=== PATIENT | male | born 1990 | race Caucasian/White ===

== ENCOUNTER 2020-09-02 14:15 | Outpatient (REF) | payer OTHER, SELFPAY | END 2020-09-02 14:16 | disposition home or self-care (01) | LOC: HO.LAB 14:15 | PROVIDERS: Visit Provider Internal Medicine | DX: Z20.828 Contact with and (suspected) exposure to other viral communicable diseases (principal) | CPT/HCPCS: 87635 ==

== ENCOUNTER 2020-09-20 16:34 | Outpatient (REF) | payer OTHER, SELFPAY | END 2020-09-20 16:35 | disposition home or self-care (01) | LOC: HO.LAB 16:34 | PROVIDERS: Visit Provider Internal Medicine | DX: Z20.828 Contact with and (suspected) exposure to other viral communicable diseases (principal) | CPT/HCPCS: U0003 ==

== ENCOUNTER → 2023-02-09 10:43 | Outpatient (BNVA) | payer OTHER, SELFPAY | PROVIDERS: Visit Provider Internal Medicine | DX: K40.90 Unilateral inguinal hernia, without obstruction or gangrene, not specified as recurrent (principal) | CPT/HCPCS: 99203 ==

== ENCOUNTER → 2023-02-20 09:24 | Outpatient (BNVA) | payer OTHER, SELFPAY | PROVIDERS: PCP Nurse Practitioner Family; Referring Provider Internal Medicine; Visit Provider Surgery | DX: K40.90 Unilateral inguinal hernia, without obstruction or gangrene, not specified as recurrent (principal) | CPT/HCPCS: 99202 ==

== ENCOUNTER 2023-03-30 06:36 | Day surgery (SDC) | payer OTHER, SELFPAY ==
--- NOTE | 2023-03-29 08:48 | P.CONAN_ITS ---
Documented by User: Lily Casey NP 03/29/23 08:49 HPI - Anesthesia Eval Consult details Narrative: 32yo M for Right Hernia Repair Inguinal Open w/ Mesh COUNTS INCLUDE 234 BEDS AT THE [facility] Active Problems Active Problems: All Active Problems (Updated 02/20/23 @ 09:54 by Sp Villa MD) Inguinal hernia of right side without obstruction or gangrene (Acute) Past Medical History Medical History History of eye muscle disorder Surgical History Surgical History H/O adenoidectomy Hx of tonsillectomy [place] teeth extracted Social History Social History (Updated 02/20/23 @ 09:40 by CHE Kay) Household Members Other:: parents Housing: House Alcohol intake: never Patient Tobacco Use Status: Never used Tobacco Are you DNR?: No Advance Directives: No Advance Directives Information Provided: Yes Nutrition Risks: No Nutritional Risk Meds Allergies Allergy/AdvReac Type Severity Reaction Status Date / Time No Known Allergies Allergy Verified 03/30/23 07:09 Home Medications Medication Instructions Recorded Confirmed Last Taken Type multivitamin with minerals 1 tab PO DAILY 02/20/23 03/30/23 Unknown History Exam Exam Date and Time: March 29, 2023 0848 Assessment and Plan Assessment Anesthesia Assessment: Chart Reviewed Documented by User: Irma Sears MD 03/30/23 08:07 COUNTS INCLUDE 234 BEDS AT THE [facility] Past Medical History Medical History History of eye muscle disorder Surgical History Surgical History H/O adenoidectomy Hx of tonsillectomy [place] teeth extracted History of Problems with Anesthesia: No Social History Social History (Updated 02/20/23 @ 09:40 by CHE Kay) Household Members Other:: parents Housing: House Alcohol intake: never Patient Tobacco Use Status: Never used Tobacco Are you DNR?: No Advance Directives: No Advance Directives Information Provided: Yes Nutrition Risks: No Nutritional Risk Meds Allergies Allergy/AdvReac Type Severity Reaction Status Date / Time No Known Allergies Allergy Verified 03/30/23 07:09 Home Medications Medication Instructions Recorded Confirmed Last Taken Type multivitamin with minerals 1 tab PO DAILY 02/20/23 03/30/23 Unknown History Exam Airway Mallampati Class: II TM Dist: >3cm Neck ROM: Full Loose/Missing/Broken Teeth: No Heart: RRR Lungs: CTA Assessment and Plan Assessment Anesthesia Assessment: Anesthesia Plan Discussed Final Anesthetic Review History of Problems with Anesthesia: No NPO: Yes ASA Class: I Final Preanesthetic Review: Meds/Allgs Chart Reviewed, Consent Obtained/Reviewed and Anes Risks/Benef Reviewed Patient Risk: Low Procedure Risk: Low Anesthetic Plan Anesthetic Plan: GA Disposition: Standard PACU
--- NOTE | 2023-03-29 14:23 | MHC.SHP ---
Pre-Procedural Eval Section A Date of Service: 03/29/23 The patient is an INPATIENT: No Changes since office visit: No Cold of Flu in the past 2 weeks, No New Medical Problems, No Changes in Medication and No Patient answered all questions The History & Physical has been completed within 30 days and I have reviewed it.: Yes Section B Chief Complaint: Unilateral inguinal hernia, without obstruction Allergies: Allergies Allergy/AdvReac Type Severity Reaction Status Date / Time No Known Allergies Allergy Verified 02/20/23 09:36 Plan I have reviewed the history and physical and performed a pertinent physical examination on my patient. No changes have occurred unless specified. Time Spent With Patient Time: Total time managing care of this patient today ____ minutes.
[2023-03-30] VITALS (7 sets, daily range): BP systolic 117–144; BP diastolic 53–92; PULSE 84–99; RESP 15–18; TEMP 36.5–36.7; O2SAT 97–99; BMI 30.5
[2023-03-30] MEDS: Lactated Ringers 1,000 ML 100 ML IVCONT (06:56)
--- NOTE | 2023-03-30 09:55 | W.PM.OPN ---
Operative Note Operative Note Date of Service: 03/30/23 Narrative: Preoperative diagnosis: [] Right inguinal hernia Postop diagnosis: [] Same Procedure [] repair right inguinal hernia open technique with Bard mesh Surgeon: [] Allen Stress Test Technician: [] Anisha BELTRAN Type of Anesthesia: [] General Indication for surgery: [] Direct right inguinal hernia. No indirect hernia demonstrated. Findings: [] Patient brought to the operating room, placed on operating table in supine position, after adequate level of general anesthesia was induced, the right groin and genitalia were prepped and draped in usual sterile fashion. Using a small right jada inguinal incision, this carried down through skin, subcutaneous tissue, Bret's fascia. External oblique fibers were opened there direction with care to preserve both the ilioinguinal and iliohypogastric nerves throughout the procedure. The spermatic cord was identified and retracted from the field. Exploration of the cord demonstrated no indirect hernia. Patient had a moderate size direct inguinal hernia which was reduced. A Bard plug was placed in this direct defect, and sutured inferiorly to the inguinal ligament, and superiorly to the transversalis fascia using interrupted 2-0 Ethibond suture. A completion the procedure, mesh was in good position with no tension. Wound was irrigated, secured hemostasis, and closed in the following manner; external oblique fascia was reapproximated using running 2-0 Vicryl suture. Bret fascia was closed using up to 3-0 Vicryl sutures. Interrupted inverted subdermal 3-0 Vicryl sutures followed by running subcuticular 4-0 Vicryl sutures were placed. Steri-Strips and dressings were applied. Was infiltrated 0.5% Marcaine at completion. The ipsilateral testicle was intrascrotal at completion of the procedure. Sponge, needle, and instrument counts were reported to be correct. Patient tolerated the procedure well and emerged anesthesia stable condition. EBL minimal
[2023-03-30] MEDS: ondansetron HCL 4 MG/2 ML VIAL IVPUSH (10:40)
[2023-03-30] MEDS: Ondansetron ODT 4 MG TAB.RAPDIS TRANSLINGU (11:01)
== END 2023-03-30 13:53 | disposition home or self-care (01) ==
PROVIDERS: PCP Nurse Practitioner Family; Visit Provider Surgery
PROC: (CPT 49505; principal; 2023-03-30 08:10)
DX: K40.90 Unilateral inguinal hernia, without obstruction or gangrene, not specified as recurrent (principal)
CPT/HCPCS: 49505; C1781; J0690; J1100; J1170; J2250; J2370; J2405; J2795; J3010

== ENCOUNTER 2023-04-04 19:34 | Emergency (ER) | payer OTHER, SELFPAY ==
[2023-04-04 19:42] VITALS: BP 124/64; PULSE 95; RESP 18; TEMP 36.8; O2SAT 98; BMI 30.1
--- NOTE | 2023-04-04 19:43 | ED_ITS ---
HPI - Nausea/Vomiting/Diarrhea General Chief complaint: GI Bleed <DEVIN Kc - Last Filed: 04/04/23 19:47> Stated complaint: black stool/ had surgery sunday <DEVIN Kc - Last Filed: 04/04/23 19:47> Time Seen by Provider: 04/04/23 21:28 <DEVIN Kc - Last Filed: 04/04/23 19:47> Source: patient <Amber Mora MD - Last Filed: 04/04/23 21:51> Mode of arrival: ambulatory <Amber Mora MD - Last Filed: 04/04/23 21:51> Limitations: no limitations <Amber Mora MD - Last Filed: 04/04/23 21:51> History of Present Illness HPI Narrative: Patient comes to the emergency room complaining of 3 days of [place]/blackish stool. Patient has not seen any red blood per rectum. Five days ago, patient had a right inguinal hernia surgery. Patient states that he is healing well. However, patient started noticing the black tarry stools after the procedure. Patient denies abdominal pain, no nausea vomiting or diarrhea. Patient denies taking by Pepto-Bismol, NSAIDs or iron <Amber Mora MD - Last Filed: 04/04/23 21:51> Related Data Home medications: Home Medications Medication Instructions Recorded Confirmed multivitamin with minerals 1 tab PO DAILY 02/20/23 03/30/23 Previous Rx's Medication Instructions Recorded hydrocodone 5 mg-acetaminophen 325 1 tab PO Q4-6H #30 tabs 03/30/23 mg tablet <DEVIN Kc - Last Filed: 04/04/23 19:47> Allergies/Adverse reactions: Allergies Allergy/AdvReac Type Severity Reaction Status Date / Time No Known Allergies Allergy Verified 03/30/23 07:09 <DEVIN Kc - Last Filed: 04/04/23 19:47> Review of Systems Review of Systems: Constitutional : No Weight loss, No Fever, No Chills, No Night Sweats, No Fatigue, No Malaise ENT/Mouth : No Hearing loss, No Ear Pain, No Nasal Congestion, No Sinus Pain, No Hoarseness, No sore throat, No Rhinorrhea, No Swallowing Difficulty Eyes: No Eye Pain, No Swelling, No Redness, No Foreign Body, No Discharge, No Vision Changes Cardiovascular : No Chest Pain, No SOB, No Dyspnea on Exertion, No Orthopnea, No Edema, No Palpitations Respiratory : No Cough, No Sputum, No Wheezing, No Smoke Exposure, No Dyspnea Gastrointestinal : No Nausea, No Vomiting, No Diarrhea, No Constipation, No abdominal Pain, complaining of black tarry stool Genitourinary : no irregular bleeding, No Dysuria, No Urinary Frequency, No Hematuria, No Urinary Incontinence, No Urgency, No Flank Pain, No Urinary Flow Changes, No Hesitancy Musculoskeletal : No joint pain, No Myalgias, No Joint Swelling Skin : No Skin Lesions, No rash Neuro : No Weakness, No Numbness, No Paresthesias, No Loss of Consciousness, No Dizziness, No Headache Psych : No Anxiety/Panic, No Depression, No SI/HI/AH/VH, No Social Issues, Heme/Lymph: No Bruising, No Bleeding,No Lymphadenopathy Endocrine : No Polyuria, No Polydipsia, No Temperature Intolerance <Amber Mora MD - Last Filed: 04/04/23 21:51> [facility] Past Medical History Medical History: Medical History History of eye muscle disorder <DEVIN Kc - Last Filed: 04/04/23 19:47> Surgical History: Surgical History H/O adenoidectomy Hx of tonsillectomy [place] teeth extracted <DEVIN Kc - Last Filed: 04/04/23 19:47> Social History Social History: Social History (Updated 02/20/23 @ 09:40 by CHE Kay) Household Members Other:: parents Housing: House Alcohol intake: never Patient Tobacco Use Status: Never used Tobacco Advance Directives: No Advance Directives Information Provided: Yes <DEVIN Kc - Last Filed: 04/04/23 19:47> Physical Exam Vital Signs: Vital Signs: Last Vital Signs Temp 98.7 F 04/04/23 21:13 Pulse 89 04/04/23 21:13 Resp 16 04/04/23 21:13 BP 119/72 04/04/23 21:13 Pulse Ox 98 04/04/23 21:13 O2 Del Method Room Air 04/04/23 21:13 BMI result Body Mass Index 30.1 <DEVIN Kc - Last Filed: 04/04/23 19:47> Vital Signs: Last Vital Signs Temp 98.7 F 04/04/23 21:13 Pulse 89 04/04/23 21:13 Resp 16 04/04/23 21:13 BP 119/72 04/04/23 21:13 Pulse Ox 98 04/04/23 21:13 O2 Del Method Room Air 04/04/23 21:13 BMI result Body Mass Index 30.1 <Amber Mora MD - Last Filed: 04/04/23 21:51> Const: Other: Appearance: Alert. Oriented X3. No acute distress. Eyes: Pupils equal, round and reactive to light. ENT: Pharynx normal. Neck: Normal inspection. Neck supple. No lymph nodes noted. No crepitus CVS: Normal heart rate and rhythm. Pulses normal. Normal S1 and S2 Respiratory: No respiratory distress. Breath sounds normal. No Wheezing. No rales Abdomen: Soft and nontender. No rigidity. No distention. Digital rectal exam: Black/brownish stool Skin: Skin warm and dry. Normal skin color. Normal skin turgor. Extremities: No lower extremity edema. No Lacerations. No Rash Neuro: Oriented X 3. No motor deficit. No sensory deficit. Moving all extremities. No slurred speech. CN 2 through 12 grossly intact Psych: calm, cooperative, normal affect <Amber Mora MD - Last Filed: 04/04/23 21:51> Course Course Course Narrative: RME - 32 yo male POD #5 from right inguinal hernia repair by Dr. Villa who presents to the ER for evaluation of black stools x3 that started yesterday. He states his post-op pain has been manageable. He has been nauseated and having some indigestion that started yesterday as well. Has not been on NSAIDS. He was unable to get ahold of anyone in Surgery office today. Plan: lab workup, LYLE <DEVIN Kc - Last Filed: 04/04/23 19:47> Medical Decision Making Medical Decision Making MDM Narrative: -hematology and chemistry within normal limits -guaiac stool test: Negative -patient likely has dark stools secondary to something he ate or a medication that he was giving during his surgery. Patient ready for discharge. Patient asymptomatic <Amber Mora MD - Last Filed: 04/04/23 21:51> Lab Data Result Diagrams: 04/04/23 19:58 04/04/23 19:57 <DEVIN Kc - Last Filed: 04/04/23 19:47> Labs: Lab Results 04/04/23 04/04/23 04/04/23 Range/Units 19:57 19:58 19:58 WBC 9.6 (4.8-10.8) X10*3/uL RBC 4.91 (4.60-5.80) X10*6/uL Hgb 14.8 (14.0-18.0) g/dl Hct 43.0 (42.0-52.0) % MCV 87.6 (80.0-98.0) fL MCH 30.1 (27.0-33.0) pg MCHC 34.4 (31.0-36.0) g/dl RDW 12.5 (11.0-16.0) % Plt Count 332 (160-400) X10*3/uL MPV 9.1 L (9.4-12.4) fL Immature Gran % (Auto) 0.4 (0.0-0.4) % Neut % (Auto) 60.1 (45-73) % Lymph % (Auto) 30.6 (20-40) % [place] % (Auto) 7.9 (2-11) % Eos % (Auto) 0.6 (0-4) % Baso % (Auto) 0.4 (0-2) % Lymph # (Auto) 2.9 (1.2-4.9) X10*3/uL [place] # (Auto) 0.8 (0.1-1.2) X10*3/uL Eos # (Auto) 0.1 (0.0-0.4) X10*3/uL Baso # (Auto) 0.0 (0.0-0.2) X10*3/uL Abs Immat Gran (auto) 0.04 H (0.00-0.03) X10*3/uL Absolute Neuts (auto) 5.8 (2.0-8.3) x10*3/uL Absolute Nucleated RBC 0.000 (0.0-0.012) X10*3/uL Nucleated RBC % (auto) 0.0 (0.0-0.2) /100WBC PT 11.1 (10.0-13.1) SEC INR 1.0 (0.9-1.1) APTT 30.8 (26.0-36.4) SEC Sodium 141 (135-145) mmol/L Potassium 4.4 (3.3-5.1) mmol/L Chloride 105 (96-108) mmol/L Carbon Dioxide 29 (22-29) mmol/L Anion Gap 11 L (12-20) BUN 13 (9-16) mg/dL Creatinine 0.87 (0.5-1.4) mg/dL Estim Creat Clear Calc 129.7 Estimated GFR > 60 Random Glucose 94 (60-115) mg/dL Calcium 9.8 (8.4-10.2) mg/dL Magnesium 2.0 (1.6-2.6) mg/dL Total Bilirubin 0.5 (0.0-1.0) mg/dL Direct Bilirubin 0.1 (0.0-0.5) mg/dL AST 22 (5-37) U/L ALT 49 H (0-40) U/L Alkaline Phosphatase 71 (39-117) U/L Total Protein 7.1 (6.5-8.0) g/dL Albumin 4.7 (3.5-5.0) g/dL Urine Color Urine Appearance Urine pH (5.0-9.0) Ur Specific [place] (1.005-1.025) Urine Protein (Neg-Trace) mg/dL Urine Glucose (UA) (Negative) mg/dL Urine Ketones (Negative) mg/dL Urine Blood (Negative) Urine Nitrite (Negative) Ur Leukocyte Esterase (Negative) Stool Occult Blood (NEGATIVE) 04/04/23 04/04/23 Range/Units 20:02 21:37 WBC (4.8-10.8) X10*3/uL RBC (4.60-5.80) X10*6/uL Hgb (14.0-18.0) g/dl Hct (42.0-52.0) % MCV (80.0-98.0) fL MCH (27.0-33.0) pg MCHC (31.0-36.0) g/dl RDW (11.0-16.0) % Plt Count (160-400) X10*3/uL MPV (9.4-12.4) fL Immature Gran % (Auto) (0.0-0.4) % Neut % (Auto) (45-73) % Lymph % (Auto) (20-40) % [place] % (Auto) (2-11) % Eos % (Auto) (0-4) % Baso % (Auto) (0-2) % Lymph # (Auto) (1.2-4.9) X10*3/uL [place] # (Auto) (0.1-1.2) X10*3/uL Eos # (Auto) (0.0-0.4) X10*3/uL Baso # (Auto) (0.0-0.2) X10*3/uL Abs Immat Gran (auto) (0.00-0.03) X10*3/uL Absolute Neuts (auto) (2.0-8.3) x10*3/uL Absolute Nucleated RBC (0.0-0.012) X10*3/uL Nucleated RBC % (auto) (0.0-0.2) /100WBC PT (10.0-13.1) SEC INR (0.9-1.1) APTT (26.0-36.4) SEC Sodium (135-145) mmol/L Potassium (3.3-5.1) mmol/L Chloride (96-108) mmol/L Carbon Dioxide (22-29) mmol/L Anion Gap (12-20) BUN (9-16) mg/dL Creatinine (0.5-1.4) mg/dL Estim Creat Clear Calc Estimated GFR Random Glucose (60-115) mg/dL Calcium (8.4-10.2) mg/dL Magnesium (1.6-2.6) mg/dL Total Bilirubin (0.0-1.0) mg/dL Direct Bilirubin (0.0-0.5) mg/dL AST (5-37) U/L ALT (0-40) U/L Alkaline Phosphatase (39-117) U/L Total Protein (6.5-8.0) g/dL Albumin (3.5-5.0) g/dL Urine Color Yellow Urine Appearance Clear Urine pH 7.5 (5.0-9.0) Ur Specific [place] 1.010 (1.005-1.025) Urine Protein Negative (Neg-Trace) mg/dL Urine Glucose (UA) Negative (Negative) mg/dL Urine Ketones Negative (Negative) mg/dL Urine Blood Negative (Negative) Urine Nitrite Negative (Negative) Ur Leukocyte Esterase Negative (Negative) Stool Occult Blood NEGATIVE (NEGATIVE) <DEVIN Kc - Last Filed: 04/04/23 19:47> Lab Results 04/04/23 04/04/23 04/04/23 Range/Units 19:57 19:58 19:58 WBC 9.6 (4.8-10.8) X10*3/uL RBC 4.91 (4.60-5.80) X10*6/uL Hgb 14.8 (14.0-18.0) g/dl Hct 43.0 (42.0-52.0) % MCV 87.6 (80.0-98.0) fL MCH 30.1 (27.0-33.0) pg MCHC 34.4 (31.0-36.0) g/dl RDW 12.5 (11.0-16.0) % Plt Count 332 (160-400) X10*3/uL MPV 9.1 L (9.4-12.4) fL Immature Gran % (Auto) 0.4 (0.0-0.4) % Neut % (Auto) 60.1 (45-73) % Lymph % (Auto) 30.6 (20-40) % [place] % (Auto) 7.9 (2-11) % Eos % (Auto) 0.6 (0-4) % Baso % (Auto) 0.4 (0-2) % Lymph # (Auto) 2.9 (1.2-4.9) X10*3/uL [place] # (Auto) 0.8 (0.1-1.2) X10*3/uL Eos # (Auto) 0.1 (0.0-0.4) X10*3/uL Baso # (Auto) 0.0 (0.0-0.2) X10*3/uL Abs Immat Gran (auto) 0.04 H (0.00-0.03) X10*3/uL Absolute Neuts (auto) 5.8 (2.0-8.3) x10*3/uL Absolute Nucleated RBC 0.000 (0.0-0.012) X10*3/uL Nucleated RBC % (auto) 0.0 (0.0-0.2) /100WBC PT 11.1 (10.0-13.1) SEC INR 1.0 (0.9-1.1) APTT 30.8 (26.0-36.4) SEC Sodium 141 (135-145) mmol/L Potassium 4.4 (3.3-5.1) mmol/L Chloride 105 (96-108) mmol/L Carbon Dioxide 29 (22-29) mmol/L Anion Gap 11 L (12-20) BUN 13 (9-16) mg/dL Creatinine 0.87 (0.5-1.4) mg/dL Estim Creat Clear Calc 129.7 Estimated GFR > 60 Random Glucose 94 (60-115) mg/dL Calcium 9.8 (8.4-10.2) mg/dL Magnesium 2.0 (1.6-2.6) mg/dL Total Bilirubin 0.5 (0.0-1.0) mg/dL Direct Bilirubin 0.1 (0.0-0.5) mg/dL AST 22 (5-37) U/L ALT 49 H (0-40) U/L Alkaline Phosphatase 71 (39-117) U/L Total Protein 7.1 (6.5-8.0) g/dL Albumin 4.7 (3.5-5.0) g/dL Urine Color Urine Appearance Urine pH (5.0-9.0) Ur Specific [place] (1.005-1.025) Urine Protein (Neg-Trace) mg/dL Urine Glucose (UA) (Negative) mg/dL Urine Ketones (Negative) mg/dL Urine Blood (Negative) Urine Nitrite (Negative) Ur Leukocyte Esterase (Negative) Stool Occult Blood (NEGATIVE) 04/04/23 04/04/23 Range/Units 20:02 21:37 WBC (4.8-10.8) X10*3/uL RBC (4.60-5.80) X10*6/uL Hgb (14.0-18.0) g/dl Hct (42.0-52.0) % MCV (80.0-98.0) fL MCH (27.0-33.0) pg MCHC (31.0-36.0) g/dl RDW (11.0-16.0) % Plt Count (160-400) X10*3/uL MPV (9.4-12.4) fL Immature Gran % (Auto) (0.0-0.4) % Neut % (Auto) (45-73) % Lymph % (Auto) (20-40) % [place] % (Auto) (2-11) % Eos % (Auto) (0-4) % Baso % (Auto) (0-2) % Lymph # (Auto) (1.2-4.9) X10*3/uL [place] # (Auto) (0.1-1.2) X10*3/uL Eos # (Auto) (0.0-0.4) X10*3/uL Baso # (Auto) (0.0-0.2) X10*3/uL Abs Immat Gran (auto) (0.00-0.03) X10*3/uL Absolute Neuts (auto) (2.0-8.3) x10*3/uL Absolute Nucleated RBC (0.0-0.012) X10*3/uL Nucleated RBC % (auto) (0.0-0.2) /100WBC PT (10.0-13.1) SEC INR (0.9-1.1) APTT (26.0-36.4) SEC Sodium (135-145) mmol/L Potassium (3.3-5.1) mmol/L Chloride (96-108) mmol/L Carbon Dioxide (22-29) mmol/L Anion Gap (12-20) BUN (9-16) mg/dL Creatinine (0.5-1.4) mg/dL Estim Creat Clear Calc Estimated GFR Random Glucose (60-115) mg/dL Calcium (8.4-10.2) mg/dL Magnesium (1.6-2.6) mg/dL Total Bilirubin (0.0-1.0) mg/dL Direct Bilirubin (0.0-0.5) mg/dL AST (5-37) U/L ALT (0-40) U/L Alkaline Phosphatase (39-117) U/L Total Protein (6.5-8.0) g/dL Albumin (3.5-5.0) g/dL Urine Color Yellow Urine Appearance Clear Urine pH 7.5 (5.0-9.0) Ur Specific [place] 1.010 (1.005-1.025) Urine Protein Negative (Neg-Trace) mg/dL Urine Glucose (UA) Negative (Negative) mg/dL Urine Ketones Negative (Negative) mg/dL Urine Blood Negative (Negative) Urine Nitrite Negative (Negative) Ur Leukocyte Esterase Negative (Negative) Stool Occult Blood NEGATIVE (NEGATIVE) <Amber Mora MD - Last Filed: 04/04/23 21:51> Discharge Plan Discharge Clinical Impression: Dark stools <DEVIN Kc - Last Filed: 04/04/23 19:47> Patient Disposition: Home, Self-Care <DEVIN Kc - Last Filed: 04/04/23 19:47> Instructions: Rectal Bleeding (ED) <DEVIN Kc - Last Filed: 04/04/23 19:47> Additional Instructions: Please follow-up with your primary care physician tomorrow. If you have any worsening or new symptoms, please return to the emergency room or call 911 <DEVIN Kc - Last Filed: 04/04/23 19:47> Prescriptions: No Action hydrocodone-acetaminophen 5-325 mg tablet 1 tab PO Q4-6H Qty: 30 0RF Rx Instructions: Partial Fill upon patient request. multivitamin with minerals Tablet 1 tab PO DAILY <DEVIN Kc - Last Filed: 04/04/23 19:47>
[2023-04-04 20:05] LABS: MANUAL DIFF FLAG NO
[2023-04-04 20:07] LABS: Basophils Percent Auto 0.4 % (0-2); Eosinophils Absolute Auto 0.1 X10*3/uL (0.0-0.4); Eosinophils Percent Auto 0.6 % (0-4); Hemoglobin 14.8 g/dl (14.0-18.0); Imm Gran Abs Auto 0.04 X10*3/uL (0.00-0.03); Imm Gran Pct Auto 0.4 % (0.0-0.4); Lymphocytes Absolute Auto 2.9 X10*3/uL (1.2-4.9); Lymphocytes Percent Auto 30.6 % (20-40); Mean Corpuscular HGB Conc 34.4 g/dl (31.0-36.0); Mean Corpuscular Hemoglobin 30.1 pg (27.0-33.0); Mean Corpuscular Volume 87.6 fL (80.0-98.0); Mean Platelet Volume 9.1 fL (9.4-12.4); Monocytes Absolute Auto 0.8 X10*3/uL (0.1-1.2); Monocytes Percent Auto 7.9 % (2-11); Neutrophils Absolute Auto 5.8 x10*3/uL (2.0-8.3); Neutrophils Percent Auto 60.1 % (45-73); Platelet Count 332 X10*3/uL (160-400); Red Blood Count 4.91 X10*6/uL (4.60-5.80); Red Cell Distribution Width 12.5 % (11.0-16.0); White Blood Count 9.6 X10*3/uL (4.8-10.8)
[2023-04-04 20:12] LABS: Appearance Urine Clear; Color Urine Yellow; Glucose Urine UA Negative (Negative); Leukocyte Esterase Urine Negative (Negative); Nitrite Urine Negative (Negative); PH 7.5 (5.0-9.0); Urine Blood Negative (Negative); Urine Ketones Negative (Negative); Urine Protein Negative (Neg-Trace)
[2023-04-04 20:13] LABS: Prothrombin Time 11.1 SEC (10.0-13.1)
[2023-04-04 20:15] LABS: Partial Thromboplastin Time 30.8 SEC (26.0-36.4)
[2023-04-04 20:33] LABS: Alanine Aminotransferase 49 U/L (0-40); Albumin Level 4.7 g/dL (3.5-5.0); Alkaline Phosphatase 71 U/L (39-117); Anion Gap 11 (12-20); Aspartate Amino Transferase 22 U/L (5-37); Bilirubin Direct 0.1 mg/dL (0.0-0.5); Bilirubin Total 0.5 mg/dL (0.0-1.0); Blood Urea Nitrogen 13 mg/dL (9-16); Calcium 9.8 mg/dL (8.4-10.2); Carbon Dioxide 29 mmol/L (22-29); Chloride 105 mmol/L (96-108); Creatinine Clr Calc Pharmacy 129.7; Estimated Glomerular Filt Rate > 60; Glucose Random 94 mg/dL (60-115); Potassium 4.4 mmol/L (3.3-5.1); Sodium 141 mmol/L (135-145); Total Protein 7.1 g/dL (6.5-8.0)
[2023-04-04 21:13] VITALS: BP 119/72; PULSE 89; RESP 16; TEMP 37.1; O2SAT 98
[2023-04-04 21:45] LABS: OBS Int Ctl Valid YES; OBS1 NEGATIVE (NEGATIVE)
[2023-04-04 21:56] VITALS: BP 136/67; PULSE 79; RESP 16; TEMP 37.2; O2SAT 97
--- NOTE | 2023-04-04 22:01 | PC.NURSE ---
this rn assumed care of pt from waiting room @ 2112. pt mother at bedside. pt ambulatory at discharge. vss. skin pwd. pt calm and cooperative. pt provided with discharge packet. pt and pt mother verbalized understanding of discharge plan
== END 2023-04-04 22:03 | disposition home or self-care (01) ==
PROVIDERS: Physician Assistant; Emergency Provider Emergency Medicine; PCP Nurse Practitioner Family
DX: K92.2 Gastrointestinal hemorrhage, unspecified (principal); Z79.899 Other long term (current) drug therapy
CPT/HCPCS: 36415; 80048; 80076; 81003; 82272; 83735; 85025; 85610; 85730; 99283; 99284

== ENCOUNTER → 2023-04-06 10:05 | Outpatient (BNVA) | payer OTHER, SELFPAY | PROVIDERS: PCP Nurse Practitioner Family; Visit Provider Surgery ==

== ENCOUNTER → 2025-02-19 11:34 | Outpatient (BNVA) | payer OTHER, SELFPAY | PROVIDERS: Visit Provider Physician Assistant | DX: S29.012A Strain of muscle and tendon of back wall of thorax, initial encounter (principal); X50.0XXA Overexertion from strenuous movement or load, initial encounter | CPT/HCPCS: 99203 ==

== ENCOUNTER → 2025-02-26 09:24 | Outpatient (BNVA) | payer OTHER, SELFPAY | PROVIDERS: Visit Provider Physician Assistant | DX: S29.012A Strain of muscle and tendon of back wall of thorax, initial encounter (principal); X50.0XXA Overexertion from strenuous movement or load, initial encounter | CPT/HCPCS: 99213 ==

== ENCOUNTER → 2025-03-12 12:57 | Outpatient (BNVA) | payer OTHER, SELFPAY | PROVIDERS: Visit Provider Physician Assistant Medical | DX: S29.012A Strain of muscle and tendon of back wall of thorax, initial encounter (principal); X50.0XXA Overexertion from strenuous movement or load, initial encounter; M54.12 Radiculopathy, cervical region | CPT/HCPCS: 99213 ==

== ENCOUNTER → 2025-03-17 07:48 | Outpatient (BNVA) | payer OTHER, SELFPAY | PROVIDERS: Visit Provider Physician Assistant Medical | DX: S29.012A Strain of muscle and tendon of back wall of thorax, initial encounter (principal); M54.12 Radiculopathy, cervical region; X50.3XXA Overexertion from repetitive movements, initial encounter | CPT/HCPCS: 99213 ==

== ENCOUNTER → 2025-03-31 13:05 | Outpatient (BNVA) | payer OTHER, SELFPAY | PROVIDERS: Visit Provider Physician Assistant Medical | DX: M54.12 Radiculopathy, cervical region (principal); S29.012D Strain of muscle and tendon of back wall of thorax, subsequent encounter; X50.0XXD Overexertion from strenuous movement or load, subsequent encounter | CPT/HCPCS: 99213 ==

== ENCOUNTER → 2025-04-21 07:52 | Outpatient (BNVA) | payer OTHER, SELFPAY | PROVIDERS: Visit Provider Physician Assistant Medical | DX: M54.12 Radiculopathy, cervical region (principal); S29.012D Strain of muscle and tendon of back wall of thorax, subsequent encounter; X50.0XXD Overexertion from strenuous movement or load, subsequent encounter | CPT/HCPCS: 99213 ==

== ENCOUNTER → 2025-05-19 13:10 | Outpatient (BNVA) | payer OTHER, SELFPAY | PROVIDERS: Visit Provider Physician Assistant Medical | DX: M54.12 Radiculopathy, cervical region (principal); S29.012D Strain of muscle and tendon of back wall of thorax, subsequent encounter; X50.0XXD Overexertion from strenuous movement or load, subsequent encounter; Z02.79 Encounter for issue of other medical certificate | CPT/HCPCS: 99213 ==

== ENCOUNTER → 2025-06-16 10:49 | Outpatient (BNVA) | payer OTHER, SELFPAY | PROVIDERS: Visit Provider Physician Assistant Medical | DX: S39.011A Strain of muscle, fascia and tendon of abdomen, initial encounter (principal); X50.0XXA Overexertion from strenuous movement or load, initial encounter; X50.3XXA Overexertion from repetitive movements, initial encounter | CPT/HCPCS: 74176; 99204 ==

== ENCOUNTER → 2025-06-18 08:01 | Outpatient (BNVA) | payer OTHER, SELFPAY | PROVIDERS: Visit Provider Physician Assistant Medical | DX: S39.011A Strain of muscle, fascia and tendon of abdomen, initial encounter (principal); X50.0XXA Overexertion from strenuous movement or load, initial encounter; X50.3XXA Overexertion from repetitive movements, initial encounter | CPT/HCPCS: 99213 ==

== ENCOUNTER 2025-08-06 11:11 | Outpatient (AMB) | payer OTHER, SELFPAY ==
--- NOTE | 2025-08-06 11:15 | A.OFFVIS_ITS ---
Vital Signs 08/06/25 11:21 Height 5 ft 7 in Weight 203 lb BMI 31.8 BP 131/63 Blood Pressure Location Lt brachial Position Sitting Pulse 83 Intake Visit Reasons: hernia Intake Note: Patient referred referred by Maribell Gasca PA-C for 2nd opinion of right groin he rnia. Reports strain started since RIH repair. Patient c/o: right groin on and off sharp pain. Hx of RIH repair ~ Dr. Villa 03-30-2023 Lacquer Coater Required: No Accompanied by: Self / Same As Patient Allergies No Known Allergies Allergy (Verified 04/06/23 10:15) Medication List - Last Reconciled 08/06/25 by Marshal Pate MD multivitamin with minerals 1 tab PO DAILY HPI HPI hernia: Details: 35-year-old male here because right groin pain. He had undergone repair of a right inguinal hernia with mesh with Dr. Villa in 2022. He says that since that time he would have occasional sharp pains in the area. He says that he feels that once in a while in the area seems to be a little swollen He denies any GI complaints He wanted to make sure that he does not have any recurrent hernia so he called the office to have an exam. [facility] Medical History (Updated 08/06/25 @ 12:35 by Marshal Pate MD) Right groin pain History of eye muscle disorder Surgical History History of right inguinal hernia repair (03/30/23) [place] teeth extracted H/O adenoidectomy Hx of tonsillectomy Social History Household Members Other:: parents Both parents involved: Yes Caregiver staying overnight: No Housing: House Alcohol intake: never Patient Tobacco Use Status: Never used Tobacco Review of Systems Const Denies chills and Denies fever(s) Card Denies chest pain, Denies dyspnea and Denies dyspnea on exertion Resp Denies cough, Denies dyspnea and Denies dyspnea on exertion GI Denies hematochezia and Denies change in bowel habits Denies hematuria and Denies difficulty urinating Musc Denies back pain and Denies limited range of motion Neuro Denies focal weakness and Denies convulsions Psych Denies depression and Denies mood swings Physical Exam Vital Signs: Last Vital Signs Pulse 83 08/06/25 11:21 BP 131/63 08/06/25 11:21 BMI result Body Mass Index 31.8 Const General: comfortable and no acute distress Orientation/consciousness: patient oriented x3 Neck Neck: Yes no lymphadenopathy Resp Auscultation: clear to auscultation bilaterally Cardio Rhythm: regular rhythm GI Other: I do not feel any recurrent hernia on the right groin with Valsalva maneuvers; there is no mass or any tenderness currently. There were no skin changes Palpation (GI): Soft to palpation, nontender and no guarding Neuro General: patient oriented x3 Assessment & Plan Assessment & Plan (1) Right groin pain: Code(s): R10.31 - Right lower quadrant pain Category: Medical Plan: He had a history of repair of right inguinal hernia with Dr. Villa in 2022. He describes occasional sharp pains in the area. Physical exam does not suggest a recurrent hernia at this time. However, I did tell him that if he notices a mass or if he feels that the pain is worsening, he should come back to the office to be re-evaluated. He understands the plan and is comfortable with this Coding Level of Care Code Est Pt Level 3 (70681) Diagnoses Right groin pain R10.31
[2025-08-06 11:21] VITALS: BP 131/63; PULSE 83; BMI 31.8
--- OUTSIDE RECORDS SUMMARY | 2025-08-06 13:29 | XMS_ITS | Clinical Summary ---
Author Organization [facility] Address [address] [place] [address] Phone Care Team Providers Care Associate Genetics Professor Name Role Phone Unavailable Primary Care Provider Unavailabl e Immunizations Immunization Administration Dates Next Due DTP 04/23/1996, 3,02/05/1992,12/05,1991 Hep B, ped/adol 10/30/1996,07/09/1996,04/23/1996 Hib (HbOC) 10/13/1992, 2,1991,09/26 IPV 04/23/1996, 3,1991,09/26 Influenza Split 01/03/2011 Influenza, injectable, trivalent 01/05/2010 MMR 10/13/1996,06/04/1995 Meningococcal Conj (Menactra) MCV4P 01/21/2007 Td (adult) (MBL), 2 Lf tetan us toxoid, PF, adsorbed 12/15/2002 Tdap 03/04/2008 Varicella 03/04/2008,12/15/2002 Family History Relation Name Status Comments Brother Alive Brother: Alive and well Father Alive Father: Alive a nd well Mother Alive Mother: Ulcerat yung colitis Other Family history of Sudden /LA under 55, Family history of Diabetes mellitus Social History Tobacco Use Types Packs/Day Years Used Date Smoking Tobacco: Never Comments:Never smoker Sex and Gender Information Value Date Recorded Sex Assigned at Not on file Legal Sex Male 4:43 PM EDT Gender Identity Not on file Sexual Orientation Not on file Last Filed Vital Signs Vital Sign Reading Time Taken Comments Blood Pressure 102/74 06/06/2012 12:00 AM EDT Pulse - - Temperature 35.7 C (96.2 F) 11/22/2010 12:00 AM EST Respiratory Rate - - Oxygen Saturation - - Inhaled Oxygen Concentration - - Weight 70.8 kg (156 lb) 06/06/2012 12:00 AM EDT Height 171.5 cm (5' 7.5 ) 06/06/2012 12:00 AM ED T Body Mass Index 24.07 06/06/2012 12:00 AM EDT Plan of Treatment Health Maintenance Due Date Last Done Comments DTaP,Tdap,and Td Vaccines (7 - Td or Tdap) 03/04/2018 03/04/2008, 12/15/2002, 04/23/1996, Additional history exists HPV Vaccines (1 - 3-dose SCDM series) 2018 Influenza Vaccines (#1) 2025 01/03/2011, 01/05 COVID-19 Vaccine (2023- season) 2025 HIB Vaccines Completed 10/13/1992, 01/17, 1991, Additional history exists IPV Vaccines Completed 04/23/1996, 12/1992, 1991, Additional history exists MMR Vaccines Completed 10/13/1996, 06/04/1995 Hepatitis B Vaccines Completed 10/30/1996, 07/09/1996, 04/23/1996 Meningococcal Vaccine Aged Out 01/21/2007 No jericho tony eligible based on patient's age to complete this topic Varicella Vaccines Completed 03/04/2008, 12/15/2002 Hepatitis A Vaccines Aged Out No long er eligible based on patient's age to complete this topic Men B Vaccine Aged Out No longer elig ible based on patient's age to complete this topic Pneumococcal Vaccine Aged Out No long er eligible based on patient's age to complete this topic
--- OUTSIDE RECORDS SUMMARY | 2025-08-06 13:29 | XMS_ITS | Clinical Summary ---
Author Organization [facility] Address [address] [place] [address] Phone Care Team Providers Care Casting Machine Operator Name Role Phone DerrickJodi Rachelanna OUTBOARD MOTOR TESTER Primary Care Provider [phone] Social History Tobacco Use Types Packs/Day Years Used Date Smoking Tobacco: Never Assessed Sex and Gender Information Value Date Recorded Sex Assigned at Not on file Legal Sex Male 8:50 PM EST Gender Identity Not on file Sexual Orientation Not on file Plan of Treatment Health Maintenance Due Date Last Done Comments DTaP,Tdap,and Td Vaccines (1 - Tdap) 2010 Hepatitis B Vaccines (1 of 3 - 19+ 3-dose series) 2010 HIV Screening 08/26/2024 Hepatitis C Screening 08/26/2024 Social Influencers of Health Screening 08/26/2024 Depression Screening 11/19/2024 COVID-19 Vaccine (2023-2 5 season) 2025 Influenza Vaccine (#1) 2025 HIB Vaccines Aged Out No longer eligi ble based on patient's age to complete this topic HPV Vaccines Aged Out No longer eligi ble based on patient's age to complete this topic Hepatitis A Vaccines Aged Out No long er eligible based on patient's age to complete this topic IPV Vaccines Aged Out No longer eligi ble based on patient's age to complete this topic MMR Vaccines Aged Out No longer eligi ble based on patient's age to complete this topic Meningococcal ACWY Vaccine Aged Out N o longer eligible based on patient's age to complete this topic Meningococcal B Vaccine Aged Out No l onger eligible based on patient's age to complete this topic Pneumococcal Vaccine: Pediat rics (0 to 5 Years) and At-Risk Patients (6 to 49 Years) Aged Out No longer eligible b ased on patient's age to complete this topic RSV Immunization Patients Un carter 20 months Aged Out No longer eligible b ased on patient's age to complete this topic Varicella Vaccines Aged Out No longer eligible based on patient's age to complete this topic Insurance [facility] [address] [place] [address] Care Teams Casting Machine Operator Relationship Specialty Start Date End Date Jdoi Meza NP [address] [place] [address] PCP - General Family Medicine 09/10/24
--- OUTSIDE RECORDS SUMMARY | 2025-08-06 13:29 | XMS_ITS | Encounter Summary ---
Author Organization [facility] Address [address] [place] [address] Phone Care Team Providers Care Inventory Control Manager Name Role Phone Roberto Bishop MD Primary Care Provider [phone] Encounter Details Date Type Department Care Team (Late st Contact Info) Description 11/21/2012 Documentation EM Family Medicine [address] [place] [address] Family Medicine, Physician [address] [place], [place] [id number] Social History Tobacco Use Types Packs/Day Years Used Date Smoking Tobacco: Never Assessed Sex and Gender Information Value Date Recorded Sex Assigned at Not on file Legal Sex Male 4:43 PM EDT Gender Identity Not on file Sexual Orientation Not on file documented as of this encounter Plan of Treatment Not on file documented as of this encounter Visit Diagnoses Not on filedocumented in this encounter Care Teams Inventory Control Manager Relationship Specialty Start Date End Date Roberto Bishop MD [address] [place] [address] [place] [id number] PCP - General 06/29/17 02/26/23 documented as of this encounter
--- OUTSIDE RECORDS SUMMARY | 2025-08-06 13:29 | XMS_ITS | Encounter Summary ---
Author Organization [facility] Address [address] [place] [address] Care Team Providers Care Basket Assembler Name Role Phone Jodi Meza MATERIAL HANDLER 1ST SHIFT Primary Care Provider [phone] Encounter Details Date Type Department Care Team (Late st Contact Info) Description 09/30/2024 Lab Requisition [facility] - Main Lab [address] [facility] [address] [place] [id number] Germania Khan MD [address] [address] Encounter for screening for malignant neoplasm of colon Social History Tobacco Use Types Packs/Day Years Used Date Smoking Tobacco: Never Assessed Sex and Gender Information Value Date Recorded Sex Assigned at Not on file Legal Sex Male 8:50 PM EST Gender Identity Not on file Sexual Orientation Not on file documented as of this encounter Plan of Treatment Not on file documented as of this encounter Procedures Procedure Name Priority Date/Time Associated Diagnosis Comments TISSUE EXAM Routine 09/29/2024 Encounter for screening for malignant neoplasm of colon documented in this encounter Results * Tissue Exam (09/29/2024) Final Diagnosis A. Stomach, body biopsy: Gastric mucosa with reactive gastropathy. No Helicobacter pylori type gastritis identified. B. Esophagus, Biopsy: Benign esophageal squamous mucosa with no specific pathologic change identified. No intraepithelial eosinophils identified. 10/01/2024 12:34 PM EST [facility] ([facility]) [facility] Clinical Information Follow-up of gastro-esophageal reflux disease,chest pain(non cardiac) Rule out H. Pylori, rule out eosinophilic esophagitis. 10/01/2024 12:34 PM EST [facility] Gross Description A. Stomach, body biopsy: Labeled stomach body biopsy . Received in formalin are three irregular charles mucosal tissue fragments, ranging from 0.2 cm to 0.4 cm in greatest dimension, which are wrapped in paper and submitted in toto in one cassette, three pieces, multiple levels on one slide. B. Esophagus, Biopsy: Labeled esophagus biopsy . Received in formalin are three irregular charles-white mucosal tissue fragments, each measuring approximately 0.1 cm in greatest dimension, which are wrapped in paper and submitted in toto in one cassette, three pieces, multiple levels on one slide. 10/01/2024 12:34 PM [facility] Disclaimer Unless otherwise specified, all tissue is 10% NB formalin fixed and paraffin embedded. 10/01/2024 12:34 PM [facility] Tissue Esophageal structure / Unknown 09/29/2024 09/30/2024 5:02 AM EST Tissue specimen (specimen) Esophageal structure / Unknown 09/29/2024 09/30/2024 5:02 AM EST Germania Khan MD LAB PATHOLOGY ORDERABLES Final Result [facility] [address] [place] [address], documented in this encounter Visit Diagnoses Diagnosis Encounter for screening for malignant neoplasm of colon documented in this encounter Care Teams Basket Assembler Relationship Specialty Start Date End Date Jdoi Meza NP [address] [place] [address] PCP - General Family Medicine 09/10/24 documented as of this encounter
--- OUTSIDE RECORDS SUMMARY | 2025-08-06 13:29 | XMS_ITS | Encounter Summary ---
Author Organization [facility] Address [address] [place] [address] Phone Care Team Providers Care Disbursing Agent Name Role Phone Roberto Bishop MD Primary Care Provider [phone] Encounter Details Date Type Department Care Team (Late st Contact Info) Description 07/05/2017 Conversion Encounter [facility] [place] [address] [place] [address] Social History Tobacco Use Types Packs/Day Years [...] on filedocumented in this encounter Care Teams Disbursing Agent Relationship Specialty Start Date End Date Roberto Bishop MD [address] [place] [address] PCP - General 06/29/17 02/26/23 documented as of this encounter
== END 2025-08-06 11:32 | disposition home or self-care (01) ==
LOC: HO.HGS 11:12
PROVIDERS: Visit Provider Surgery
DX: R10.31 Right lower quadrant pain (principal)
CPT/HCPCS: 99213

== ENCOUNTER → 2025-08-06 11:11 | Outpatient (BNVA) | payer OTHER, SELFPAY | PROVIDERS: Visit Provider Surgery | DX: R10.31 Right lower quadrant pain (principal) | CPT/HCPCS: 99212 ==